=== PATIENT | male | born 1980 ===

== ENCOUNTER 2022-06-16 21:22 | Emergency (ER) | payer OTHER, SELFPAY ==
--- NOTE | ~2022-06-16 | CT_ITS ---
EXAMINATION: CT ABDOMEN AND PELVIS WITH CONTRAST CLINICAL INFORMATION: Left lower quadrant pain. COMPARISON: None TECHNIQUE: Multidetector volumetric images were obtained from the superior aspect of the liver through the pubic symphysis following administration 85 mL of Omnipaque 350 intravenous contrast. Sagittal and coronal reformatted images were obtained on the technologist's workstation. Oral contrast: No This CT examination was performed using dose optimization techniques as appropriate, variously including the following: *Automated exposure control *Adjustment of mA and/or kV according to patient size (this includes techniques or standardized protocols for targeted exams where dose is matched to indication/reason for exam; i.e. extremities or head) *Use of iterative reconstruction technique DLP: 806 mGy-cm FINDINGS: LUNG BASES: The visualized lung bases are unremarkable. LIVER, GALLBLADDER, AND BILIARY TREE: Diffuse low attenuation of the liver consistent with hepatic steatosis. The gallbladder is unremarkable with no evidence of radiopaque gallstones, gallbladder wall thickening, or obvious pericholecystic inflammatory changes. PANCREAS: Unremarkable. SPLEEN: Unremarkable. ADRENAL GLANDS: Unremarkable. KIDNEYS AND URETERS: Left kidney: 1 mm superior punctate calculus. 1 mm interpolar punctate calculus. Right kidney: Diffuse renal atrophy. Prominent extrarenal pelvis. 4 mm x 3 mm calculus within the posterior right renal pelvis 10 cm deep to the posterior axillary line (600 Hounsfield units). BLADDER: Unremarkable. GASTROINTESTINAL TRACT: Mild focal concentric inflammatory changes are noted within the proximal descending colon with mild adjacent concentric mural thickening and a small gas containing diverticulum (series 3 image 35). No free intraperitoneal gas or fluid collections identified. Normal appearance of the appendix. ABDOMINAL WALL: Bilateral fat-containing inguinal hernias. LYMPH NODES: Normal. VASCULAR: Unremarkable. PELVIC VISCERA: Unremarkable. OSSEOUS STRUCTURES: Unremarkable. CT/CT abdomen pelvis w IV con IMPRESSION: *Mild focal inflammatory changes of the proximal descending colon suspicious for uncomplicated diverticulitis. A small number of colonic diverticula are noted. No evidence of intestinal perforation. No free intraperitoneal fluid or gas collections. *Nonobstructing right nephrolithiasis and right renal atrophy. *Small number of nonobstructing punctate left renal calculi. *Diffuse hepatic steatosis.
[2022-06-16 21:30] VITALS: BP 131/94; PULSE 71; RESP 18; TEMP 36.2; O2SAT 100; BMI 28.8
[2022-06-16 22:06] LABS: MANUAL DIFF FLAG NO
[2022-06-16 22:09] LABS: Basophils Percent Auto 0.5 % (0-2); Eosinophils Absolute Auto 0.1 X10*3/uL (0.0-0.4); Eosinophils Percent Auto 1.7 % (0-4); Hematocrit 47.4 % (42.0-52.0); Hemoglobin 16.2 g/dl (14.0-18.0); Imm Gran Abs Auto 0.01 X10*3/uL (0.00-0.03); Imm Gran Pct Auto 0.1 % (0.0-0.4); Lymphocytes Absolute Auto 2.2 X10*3/uL (1.2-4.9); Lymphocytes Percent Auto 26.8 % (20-40); Mean Corpuscular HGB Conc 34.2 g/dl (31.0-36.0); Mean Corpuscular Volume 84.9 fL (80.0-98.0); Mean Platelet Volume 9.4 fL (9.4-12.4); Monocytes Absolute Auto 0.6 X10*3/uL (0.1-1.2); Monocytes Percent Auto 7.8 % (2-11); Neutrophils Absolute Auto 5.2 x10*3/uL (2.0-8.3); Neutrophils Percent Auto 63.1 % (45-73); Platelet Count 220 X10*3/uL (160-400); Red Blood Count 5.58 X10*6/uL (4.60-5.80); Red Cell Distribution Width 12.1 % (11.0-16.0); White Blood Count 8.2 X10*3/uL (4.8-10.8)
[2022-06-16 22:11] LABS: Appearance Urine Clear; Color Urine Yellow; Glucose Urine UA Negative (Negative); Leukocyte Esterase Urine Negative (Negative); Nitrite Urine Negative (Negative); PH 5.5 (5.0-9.0); Urine Blood Negative (Negative); Urine Ketones Negative (Negative); Urine Protein Negative (Neg-Trace)
[2022-06-16 22:49] LABS: Alanine Aminotransferase 47 U/L (0-40); Albumin Level 4.9 g/dL (3.5-5.0); Alkaline Phosphatase 98 U/L (39-117); Anion Gap 10 (12-20); Aspartate Amino Transferase 21 U/L (5-37); Blood Urea Nitrogen 19 mg/dL (9-16); Calcium 9.3 mg/dL (8.4-10.2); Carbon Dioxide 28 mmol/L (22-29); Chloride 105 mmol/L (96-108); Creatinine Clr Calc Pharmacy 84.2; Estimated Glomerular Filt Rate > 60; Glucose Random 100 mg/dL (60-115); Lipase 40 U/L (8-78); Potassium 4.1 mmol/L (3.3-5.1); Sodium 139 mmol/L (135-145); Total Protein 7.4 g/dL (6.5-8.0)
[2022-06-16 23:05] LABS: Bilirubin Total 0.6 mg/dL (0.0-1.0)
--- NOTE | 2022-06-17 03:19 | ED.ABDPAIN ---
HPI - Abdominal Pain General Chief Complaint: Abdominal Pain Stated Complaint: Abdominal Pain Time Seen by Provider: 06/17/22 03:19 Source: patient Mode of arrival: ambulatory Limitations: no limitations History of Present Illness HPI narrative: Patient no significant past medical history complaining of left lower quadrant abdominal pain for last 2 days got worse today no nausea no vomiting no urinary symptom no fever or chills pain get worse on ambulation and while moving bowels Related Data Previous Rx's Medication Instructions Recorded amoxicillin 875 mg-potassium 1 tab PO BID #20 tabs 06/17/22 clavulanate 125 mg tablet ibuprofen 600 mg tablet 600 mg PO Q6H PRN fever or pain 06/17/22 #30 tabs Allergies Allergy/AdvReac Type Severity Reaction Status Date / Time No Known Allergies Allergy Verified 06/16/22 21:33 Review of Systems Review of Systems Yes all other systems are reviewed and are negative [facility] Social History Social History Smoked in Last 30 Days: No Use of substances other than those prescribed or required for medical reasons: No Advance Directives: No Advance Directives Information Provided: No Physical Exam ED Vital Signs: Vital Signs - 24 hr 06/16/22 21:30 06/17/22 04:35 Temperature 97.2 F 98.2 F Pulse Rate 71 63 Respiratory Rate 18 16 Blood Pressure 131/94 H 128/86 Pulse Oximetry 100 96 Oxygen Delivery Method Room Air Room Air BMI result Body Mass Index 28.8 Appearance: Alert. Oriented X3. No acute distress. Eyes: PERRLA, No Nystagmus ENT: Pharynx normal. Oral Mucosa moist Neck: Normal inspection. Neck supple. CVS: Normal heart rate and rhythm. Pulses normal. Respiratory: No respiratory distress. Equal air entry bilateral, no wheezing/rales/rhonchi Abdomen: Soft, tenderness left lower quadrant with guarding, no rebound tenderness Bowel sounds are present, no mass palpable, no CVA tenderness Skin: Skin warm and dry. Normal skin color. Normal skin turgor. Extremities: No lower extremity edema. No calf tenderness Neuro: Oriented X 3. No motor deficit. Medical Decision Making Medical Decision Making MDM Narrative: Patient diverticulosis slight information normal WBC count will discharge patient home on Augmentin for early diverticulitis Lab Attestation: I reviewed the patient's lab results. Medications Administered Discontinued Medications Generic Name Dose Route Start Last Admin Trade Name Freq PRN Reason Stop Dose Admin Amoxicillin/Clavulanate Potassium 875 mg 06/17/22 05:24 06/17/22 05:43 Amoxicillin/Potassium Clav 875 Mg Tablet PO 06/17/22 05:25 875 mg ONCE ONE Administration Iohexol 85 ml 06/17/22 04:16 06/17/22 04:17 Iohexol 350 Mg/Ml 100 Ml Infus..Btl IV 06/17/22 04:17 85 ml ONCE ONE Administration Tramadol HCl 50 mg 06/17/22 05:24 06/17/22 05:43 Tramadol Hcl 50 Mg Tablet PO 06/17/22 05:25 50 mg ONCE ONE Administration Discharge Plan Discharge Clinical Impression: Diverticulitis Patient Disposition: Home, Self-Care Instructions: Diverticulitis (ED) Additional Instructions: Drink plenty of fluids Clear liquids advance as tolerated Antibiotics and pain medication as prescribed Report to the ER if gets worse Prescriptions: New ibuprofen 600 mg tablet 600 mg PO Q6H PRN (Reason: fever or pain) Qty: 30 0RF amoxicillin-pot clavulanate 875-125 mg tablet 1 tab PO BID Qty: 20 0RF Interventions: ED Discharge Assessment Last Done: 06/17/22 06:02 Discharge Date/Time: 06/17/22 06:05
[2022-06-17] MEDS: iohexoL 350 MG/ML 100 ML INFUS..BTL 85 ML IV (04:17)
[2022-06-17 04:35] VITALS: BP 128/86; PULSE 63; RESP 16; TEMP 36.8; O2SAT 96
[2022-06-17] MEDS: Amoxicillin/Potassium Clav 875 MG TABLET PO (05:43)
[2022-06-17] MEDS: traMADoL HCL 50 MG TABLET PO (05:43)
== END 2022-06-17 06:05 | disposition home or self-care (01) ==
PROVIDERS: Emergency Provider Internal Medicine; PCP Internal Medicine
DX: K57.32 Diverticulitis of large intestine without perforation or abscess without bleeding (principal); R10.32 Left lower quadrant pain; Z79.899 Other long term (current) drug therapy
CPT/HCPCS: 36415; 74177; 80053; 81003; 83690; 85025; 99284; Q9967